=== PATIENT | male | born 1985 | race Caucasian/White ===

== ENCOUNTER 2019-08-23 15:51 | Emergency (ER) | payer OTHER, SELFPAY ==
[2019-08-23 16:10] VITALS: BP 143/80; PULSE 73; RESP 20; TEMP 36.4; O2SAT 99
--- NOTE | 2019-08-23 16:17 | ED.GENADULT ---
HPI - General Adult General Chief complaint: Upper Respiratory Infection Stated complaint: Possible Sinus infection Time Seen by Provider: 08/23/19 16:17 Source: patient Mode of arrival: ambulatory Limitations: no limitations History of Present Illness HPI narrative: 34-year-old male patient presents to the [facility] with complaints of congestion for the past 2 months. Patient states he has had a lot of nasal congestion and pressure to the sinuses. Patient states that he has been using [id number] Afrin for his symptoms for the past 2 months. Patient states that the only thing he has been able to find to help with the nasal congestion. Denies any fevers, body aches or chills. Denies any ear pain. Denies any facial pain. Denies any cough, sore throat, chest pain, shortness of breath, abdominal pain, nausea, vomiting or diarrhea. Related Data Allergies Allergy/AdvReac Type Severity Reaction Status Date / Time No Known Allergies Allergy Verified 08/23/19 16:17 Review of Systems Review of Systems: Narrative: CONSTITUTIONAL: Denies fever, chills, or sweats. EYES: Denies visual changes, redness, or discharge. ENT: Denies rhinorrhea, positive nasal congestion, denies sore throat, or otalgia. CARDIOVASCULAR: Denies chest pain, palpitations, or edema. RESPIRATORY: Denies cough or dyspnea. GASTROINTESTINAL: Denies abdominal pain, nausea, vomiting, or diarrhea. GENITOURINARY: Denies dysuria or hematuria. SKIN: Denies rash or itching. MUSCULOSKELETAL: Denies back pain, joint pain, or myalgia. NEUROLOGIC: Denies headache, numbness, or weakness. PSYCHIATRIC: Denies anxiety or depression. PMFSH Family History Family History Other Family history of arthritis Family history of malignant neoplasm Hypertension Social History Social History Smoking status: Current every day smoker Alcohol intake: current Comments At the time of my signature I agree with nursing past medical history, surgical, social, and family history. There is no relevant family history pertinent to the presenting complaint. Exam Narrative: Exam Narrative: GENERAL: Well-appearing, well-nourished, and in no acute distress. HEAD: Normocephalic, atraumatic. EYES: PERRLA and EOMI. ENT: Nares with erythema and edema noted bilaterally, no rhinorrhea or epistaxis. Mucous membranes moist. Posterior pharynx with no erythema, tonsillar margin, exudates or lesions present. Bilateral TMs are clear with no erythema or foreign bodies in the canal. NECK: Supple. No lymphadenopathy CHEST: Clear to auscultation. No respiratory distress. HEART: Regular rate and rhythm. No murmur heard. Normal peripheral pulses. ABDOMEN: Soft, nontender, nondistended, normal active bowel sounds. EXTREMITIES: Normal range of motion. No edema. SKIN: Warm, dry, no rash. NEURO: No focal deficits. Alert and oriented x3. Course Vital Signs Vital signs: Vital Signs Temperature 36.4 C 08/23/19 16:10 Pulse Rate 73 08/23/19 16:10 Respiratory Rate 20 08/23/19 16:10 Blood Pressure 143/80 H 08/23/19 16:10 Pulse Oximetry 99 08/23/19 16:10 Temperature 36.4 C 08/23/19 16:10 Pulse Rate 73 08/23/19 16:10 Respiratory Rate 20 08/23/19 16:10 Blood Pressure 143/80 H 08/23/19 16:10 Pulse Oximetry 99 08/23/19 16:10 Vital signs reviewed Medical Decision Making Differential Diagnosis Differential Diagnosis: Differential diagnosis: Allergic rhinitis, chronic sinusitis, tonsillitis, acute sinusitis, infectious mononucleosis, seasonal influenza, pertussis, diphtheria, meningococcal disease, viral syndrome, viral bronchitis, RSV. Notify patient that his symptoms are probably worsening from the nasal spray that he has been using. Discussed with patient and showed him that on the bottle it notifies him not to take it more than 3 days due to the fact that it can ac
== END 2019-08-23 16:30 | disposition home or self-care (01) ==
PROVIDERS: Emergency Provider Nurse Practitioner Family
DX: J00 Acute nasopharyngitis [common cold] (principal); J01.90 Acute sinusitis, unspecified; J01.00 Acute maxillary sinusitis, unspecified; F17.200 Nicotine dependence, unspecified, uncomplicated
CPT/HCPCS: 99213; G0463

== ENCOUNTER 2019-09-29 12:11 | Emergency (ER) | payer OTHER, SELFPAY ==
[2019-09-29 12:18] VITALS: BP 136/82; PULSE 91; RESP 14; TEMP 36.4; O2SAT 99
--- NOTE | 2019-09-29 12:30 | ED.EYEPROB ---
HPI - Eye Problem General Chief complaint: Eye Problems Stated complaint: Redness/pain in right eye Time Seen by Provider: 09/29/19 12:30 Source: patient and family History of Present Illness HPI Narrative: Patient presents with a feeling of a foreign body in his right eye. Patient states he went to sleep on the couch last night woke up thinking he had a dog hair or something in his right eye. Patient has irrigated his eye at home but continues to have a irritated feeling to his right eye. No drainage, no pain, no vision problems. MD chief complaint: eye redness Onset description: sudden Location: right eye Eye Symptoms: redness and foreign body sensation Place: home Mechanism: none Related Data Allergies Allergy/AdvReac Type Severity Reaction Status Date / Time No Known Allergies Allergy Verified 09/29/19 12:25 Review of Systems Review of Systems: Narrative: CONSTITUTIONAL: Denies fever, chills, or sweats. EYES: Denies visual changes, redness, or discharge. ENT: Denies rhinorrhea, congestion, sore throat, or otalgia. Right eye redness CARDIOVASCULAR: Denies chest pain, palpitations, or edema. RESPIRATORY: Denies cough or dyspnea. GASTROINTESTINAL: Denies abdominal pain, nausea, vomiting, or diarrhea. GENITOURINARY: Denies dysuria or hematuria. SKIN: Denies rash or itching. MUSCULOSKELETAL: Denies back pain, joint pain, or myalgia. NEUROLOGIC: Denies headache, numbness, or weakness. PSYCHIATRIC: Denies anxiety or depression. [facility] Family History Family History Other Family history of arthritis Family history of malignant neoplasm Hypertension Social History Social History Smoking status: Current every day smoker Alcohol intake: current Comments At time of signature, agree with nursing past medical, surgical, social and family history. There is no relevant family history pertinent to the presenting complaint Exam Narrative: Exam Narrative: GENERAL: Well-appearing, well-nourished, and in no acute distress. HEAD: Normocephalic, atraumatic. EYES: PERRLA and EOMI. ENT: Nares clear, no rhinorrhea or epistaxis. Mucous membranes moist. Method of inspection: Right eye, viewed with fluorescein, viewed with slit lamp, ALCAINE APPLIED, Pupil: Both eyes, 2 mm, equal, reactivity brisk to direct light, Conjunctiva: Right, not with conjunctivitis, not pale, not with subconjunctival hemorrhage, Cornea: Right, no abrasions, Sclera: Right, clear, Intraocular pressure: Right, 16 mm Hg, Red reflex: Bilaterally, present. NECK: Supple. CHEST: Clear to auscultation. No respiratory distress. HEART: Regular rate and rhythm. No murmur heard. Normal peripheral pulses. ABDOMEN: Soft, nontender, nondistended, normal active bowel sounds. EXTREMITIES: Normal range of motion. No edema. SKIN: Warm, dry, no rash. NEURO: No focal deficits. Alert and oriented x3. Maynor Coma Scale Eye Opening: Spontaneous 4 Hamilton Coma Scale Motor: Obeys Commands 6 Maynor Coma Scale Verbal: Oriented 5 Hamilton Coma Scale Total 15 Course Vital Signs Vital signs: Vital Signs Temperature 36.4 C 09/29/19 12:18 Pulse Rate 91 09/29/19 12:18 Respiratory Rate 14 09/29/19 12:18 Blood Pressure 136/82 09/29/19 12:18 Pulse Oximetry 99 09/29/19 12:18 Temperature 36.4 C 09/29/19 12:18 Pulse Rate 91 09/29/19 12:18 Respiratory Rate 14 09/29/19 12:18 Blood Pressure 136/82 09/29/19 12:18 Pulse Oximetry 99 09/29/19 12:18 Addressed elevated BP today. Today's blood pressure higher than recommended range. Discussed importance of follow -up with PCP and possible shelter effects/cardiovascular events related to HTN. Currently patient denies headache, dizziness, vision changes, CP or shortness of breath. MDM - Eye Problem Differential Diagnosis Differential diagnosis: Likely corneal abrasion, conjunctivitis, acute iritis and
== END 2019-09-29 12:37 | disposition home or self-care (01) ==
PROVIDERS: Emergency Provider Nurse Practitioner Family
DX: S05.01XA Injury of conjunctiva and corneal abrasion without foreign body, right eye, initial encounter (principal); X58.XXXA Exposure to other specified factors, initial encounter; F17.200 Nicotine dependence, unspecified, uncomplicated
CPT/HCPCS: 99213; A9270; G0463

== ENCOUNTER 2020-05-08 07:50 | Outpatient (CLI) | payer OTHER, SELFPAY ==
[2020-05-08 07:58] LABS: Hematocrit 46.7 % (40.0-54.0); Hemoglobin 15.8 g/dL (14.0-18.0); Mean Corpuscular HGB Conc 33.8 g/dL (32.0-36.0); Mean Corpuscular Hemoglobin 30.8 pg (27.0-31.0); Mean Platelet Volume 10.2 fl (8.7-11.0); Platelet Count Result 178 K/mm3 (150-420); Red Blood Count 5.13 M/mm3 (4.70-6.10); Red Cell Distribution Width 12.5 % (11.6-14.4); White Blood Count 5.1 K/mm3 (4.8-10.8)
[2020-05-08 10:03] LABS: Alanine Aminotransferase 41 U/L (16-63); Albumin Level 4.3 g/dL (3.4-5.0); Alkaline Phosphatase 80 U/L (46-116); Anion Gap 10 mmol/L (8-16); Aspartate Amino Transferase 13 U/L (15-37); Bilirubin,Total 0.5 mg/dL (0.00-1.00); Blood Urea Nitrogen 19 mg/dL (7-18); Calcium 9.1 mg/dL (8.5-10.1); Carbon Dioxide 28 mmol/L (21-32); Chloride 104 mmol/L (98-108); Cholesterol 172 mg/dL (0-200); Estimated Glomerular Filt Rate > 60; Glucose 84 mg/dL (70-99); HDL Direct 61 mg/dL (40-60); LDL Cholesterol Calculated 96 mg/dL (<130); Osmolality Calculated 295 mOsm/kg (285-295); Potassium 4.2 mmol/L (3.5-5.1); Sodium 142 mmol/L (136-145); Total Protein 7.3 g/dL (6.4-8.2); Triglycerides 74 mg/dL (0-150)
== END 2020-05-08 07:51 | disposition home or self-care (01) ==
LOC: CHSLAB 07:52
PROVIDERS: PCP Family Medicine; Visit Provider Family Medicine
DX: Z00.00 Encounter for general adult medical examination without abnormal findings (principal)
CPT/HCPCS: 36415; 80053; 80061; 85027

== ENCOUNTER 2020-09-28 15:33 | Outpatient (NON) | payer OTHER, SELFPAY | END 2020-09-28 15:34 | PROVIDERS: PCP Family Medicine; Visit Provider Family Medicine | DX: N41.0 Acute prostatitis (principal) | CPT/HCPCS: 87086; 87491; 87591 ==

== ENCOUNTER → 2022-01-14 16:38 | Outpatient (CLI) | payer OTHER, SELFPAY ==
--- NOTE | ~2022-01-14 | MR_ITS ---
EXAMINATION: MR shoulder RT wo con DATE: 01/14/2022 18:00 INDICATION: Right shoulder pain TECHNIQUE: Magnetic resonance imaging (MRI) of the right shoulder was performed without intravenous c ontrast. Sequences included axial PD-weighted FS FSE, coronal oblique PD-weighted FS FSE, coronal obl ique T2-weighted FS FSE, sagittal PD-weighted FS FSE, and sagittal T1-weighted SE. COMPARISON: 07/07/2014 FINDINGS: Coracoacromial arch: The acromion undersurface is curved in morphology (type II). The coracoacromial ligament is normal. M ild acromioclavicular osteoarthritis. Rotator cuff: 1 supraspinatus, infraspinatus and subscapularis tendinopathy without discrete tear. The teres minor tendon is normal. Normal rotator cuff muscle bulk and signal. Biceps tendon, glenoid labrum and glenohumeral cartilage: Long head of the biceps tendon is normal. There is a tear of the superior to posterior inferior gleno id labrum which begins at the 1:00 position anteriorly and extends posteriorly and inferiorly to the 7:00 position. Increase in size of a para labral cyst which arises at the 11:00 position of the boo l tear with 16 x 7 x 7 mm component extending medially into the spinal glenoid notch along side the s uprascapular nerve. No evident fatty atrophy or abnormal muscle signal of the infraspinatus to sugges t impingement and secondary neuropathy. Smaller 11 x 9 x 3 mm component extending along the periphery of the posterior superior labrum. Glenohumeral cartilage is normal. Fluid: Physiologic amount of fluid in the glenohumeral joint and biceps tendon sheath. No loose osteochondr al bodies. No abnormal fluid signal in the subacromial/subdeltoid bursa consistent to suggest bursiti s. Bones: Interval progression of inclusion of prominent cystic change at the posterior aspect of the humeral h ead with thin low signal intensity likely sclerotic margins which is nearly entirely filled in with T 1 hyperintense marrow fat. No fracture or pathologic marrow replacing process. IMPRESSION: 1. Mild supraspinatus, infraspinatus and subscapularis tendinopathy without discrete tear. 2. Further inferior extension of a large labral tear approximately 1:00 to the 7:00 position of the s uperior, posterior and inferior labrum. 3. Interval enlargement of paralabral cysts arising at the 11:00 position of the glenoid with one com ponent extending into the spinal glenoid notch but without evident denervation change to the infraspi natus muscle to suggest impingement of the suprascapular nerve. Reviewed, dictated and finalized at location A. IMPRESSION: 1. Mild supraspinatus, infraspinatus and subscapularis tendinopathy without dis crete tear. 2. Further inferior extension of a large labral tear approximately 1:00 to the 7:00 position of the superior, posterior and inferior labrum. 3. Interval enlargement of paralabral cysts arising at the 11:00 position of th e glenoid with one component extending into the spinal glenoid notch but withou t evident denervation change to the infraspinatus muscle to suggest impingement of the suprascapular nerve.
== END ==
PROVIDERS: PCP Orthopaedic Surgery; Visit Provider Orthopaedic Surgery
DX: M25.511 Pain in right shoulder (principal)
CPT/HCPCS: 73221

== ENCOUNTER 2022-03-25 00:37 | Day surgery (SDC) | payer OTHER, SELFPAY ==
[2022-03-19 15:17] VITALS: BMI 28.8
--- NOTE | 2022-03-19 15:24 | PC.NURSE ---
Report to the Outpatient Waiting Room, entrance under the green pavilion located off [facility], at time 1200 on date 03/25/22. OR Time: 1400. Time changes happen often and if your time is changed the preop area will call you the afternoon before. - You and your visitor will be asked to self-screen and do not enter if you have any COVID symptoms. - Only one visitor and NO children visitors are allowed at this time. - The patient visitor is requested to leave or wait in car when not with patient due to restrictions. - A mask is required within the hospital. Patients may have clear liquids (water, carbonated beverages, clear teas, apple juice) until 3 hours prior to surgery with a maximum of 20 ounces. - No food from midnight until time of surgery Take the following medications with a SIP of water the morning of surgery: N/A Medications to discontinue per physician: N/A Date to take last dose: N/A Please no make-up, nail kiswahili, hairspray, perfume, deodorant, or body powder the day of surgery. No jewelry (including any body piercings) or valuables the day of surgery, leave them at home. Please take a shower or bath the night before, or the morning of, surgery with an antibacterial soap. Wear comfortable, loose fitting clothing. - Jewelry must be removed prior to entering the operating room. Rings and piercings that are not removed may be cut off. - The hospital will not accept responsibility for valuables. - Please leave all valuables, including medications, at home the day of surgery. If you are going home after surgery, a licensed retail delivery driver must drive you home. - NO public transportation without another adult. - We recommend that an adult stay with you for 24 hours following discharge. - We also recommend that you do not drive, make important decision, drink alcoholic beverages, or take any drugs that were not prescribed by your health care provider for at least 24 hours after your discharge time. Follow any additional instructions given to you from your surgeon. If you or anyone in your household have experienced Covid symptoms in the past week, please notify your surgeon or the nurse liaison at the phone number below for possible testing. Telephone instructions given to PT - ALYSON YEAGER and asked if any additional questions and then verbalized understanding. Patient advised to call surgeon office or pre surgery nurse liaison [phone] if any additional questions.
[2022-03-25] VITALS (8 sets, daily range): BP systolic 101–134; BP diastolic 70–91; PULSE 65–99; RESP 14–20; TEMP 36–36.1; O2SAT 98–100
--- NOTE | 2022-03-25 07:25 | WPDHPUPDATE1 ---
History and Physical Update Update Date/Time: 03/25/22 07:25 History and Physical has been reviewed, including an updated exam of the patient. There are NO changes in the patient's condition. Risks, benefits, and alternatives have been discussed and questions answered. Patient agrees to proceed with procedure.
--- NOTE | 2022-03-25 12:17 | WPDANESEPPF ---
Anes - Initial Pre Proc Eval Procedure: Operation Date: 03/25/22 14:00 Proposed Procedures p Arthroscopic Labral Debridement Right Shoulder with Mini Open Biceps Tenodesis - Harshil Anna MD Date/Time: 03/25/22 12:17 Surgeon: Harshil Anna MD Pre Op Diagnosis: right shoulder slap tear Patient Data Age: 36 Gender: M Height: 1.75 m Weight: 88.45 kg Allergies Allergy/AdvReac Type Severity Reaction Status Date / Time No Known Allergies Allergy Verified 03/19/22 15:16 Home Medications Medication Instructions Recorded Confirmed Type No Home Medications 11/07/21 03/19/22 History Patient hx anesthesia problems: none Family hx anesthesia problems: none Results Review: All pre-operative results and documents have been reviewed as part of the pre-operative evaluation. [facility] Past Medical History Medical History (Updated 03/25/22 @ 12:18 by Dave Siu MD) GERD (gastroesophageal reflux disease) No active medical problems Surgical History Surgical History History of left knee surgery age 14 torn meniscus Family History Family History Father Esophageal cancer Sibling Ovarian cancer Social History Social History Smoking packs per day: 0.5 Smoking cigarettes per day: 10.0 Years smoked: 10 Smoking pack-years: 5.00 Smoking status: Former smoker Tobacco type: cigarettes Smoking end date: 06/29/13 Alcohol intake: current Drinks per week: 4 Alcohol use details: social Substance use: never Substance use type: does not use Living arrangements: with friend(s) Spiritual care concerns: No Anes - Eval Final PreProcedure Day of Procedure 03/25/22 12:17 Patient weight: overweight Heart: regular rate and rhythm Lungs: clear to auscultation and normal air movement Airway: Mallampati scale class II Neurological: alert and oriented Last oral intake: >/= 8 hours ASA classification: II Emergent: no Anesthetic plan: proceed Anesthesia type and monitoring: general ETT Results Review: All pre-operative results and documents have been reviewed as part of the pre-operative evaluation. Informed Consent: The patient's anesthetic plan and its attendant risks and benefits were discussed with the patient/family/POA. Questions were solicited and answers provided to the satisfaction of the patient/family/POA.
--- NOTE | 2022-03-25 12:19 | WPDANESPNB ---
Anes - Peripheral Nerve Block Date/Time: 03/25/22 12:19 I have discussed with the patient/family/POA the placement of a peripheral nerve block for post-operative pain management, including associated risks, benefits, complications, and side effects. Alternative methods of post-operative analgesia were detailed. Questions were solicited and answers provided to the satisfaction of the patient/family/POA. Time-Out: A pre-procedural Time-Out was completed immediately before starting the procedure and confirmed: Patient Identification, Site, Procedure, Patient Position and the Availability of Requisite Equipment. Clinical Indications: Acute post-operative pain management requested by the operative surgeon. Nerve Block Insertion Note Anes-nerve block: supraclavicular Patient position: supine Skin prep: chlorhexidine Needle: 22 gauge, stimulating, insulated echogenic needle. Needle length: 80 mm Technique: ultrasound (in plane) Injectate: bupivacaine 0.5% with epi 5 mcg/ml (20cc) Observations: tolerated well Complications: none
[2022-03-25] MEDS: ACETAMINOPHEN 500 MG TABLET 1000 MG PO (12:30)
[2022-03-25] MEDS: LACTATED RINGERS 1,000 ML 30 ML IV CONT ×2 (12:30→15:50)
[2022-03-25] MEDS: KETOROLAC 15 MG/ML VIAL (*BKC) IV PUSH (12:30)
[2022-03-25] MEDS: ceFAZolin 2 GM/D5W 50 ML 2 GM/50 ML BAG IVPB (13:48)
[2022-03-25] MEDS: BUPIVACAINE/EPINEPHRINE 0.25% 50 ML VIAL 30 ML INFILTRATE (14:35)
--- NOTE | 2022-03-25 15:51 | W.PM.PROC2 ---
Procedure Note - Detailed Date of Procedure 03/25/22 Pre-op Diagnosis right shoulder slap tear Post-op Diagnosis Same Procedure Performed 1. Mini-open biceps tenodesis. 2. Arthroscopic SLAP tear debridement. Surgeon Harshil Anna MD Director Of Teaching And Learning Melissa Nicole PA-C Anesthesia General Indications Persistent shoulder pain secondary to documented SLAP tear with periarticular ganglion cyst. Description of Procedure Preoperative antibiotics were given. The patient was brought to the operating room. Careful positioning in the beach chair was accomplished. The head neck were carefully positioned. A small bump was placed under the left shoulder. The shoulder was examined. The shoulder was prepped and draped in the usual sterile fashion. Standard posterior and anterior arthroscopic portals were established. The shoulder was inspected. The SLAP tear was clearly identified. The biceps anchor point was unstable. Tear appeared to be only partially through on the posterior tissue which was not clearly unstable. It was debrided with a shaver and then the radiofrequency probe. The backside of the superior posterior labrum the tissue was lightly debrided where the cyst was located. The remaining glenohumeral cartilage was normal. The capsule appeared normal. The rotator cuff was normal with only a very minimal frayed area of the articular supraspinatus. The subscapularis was normal. The biceps tendon was released. Attention was turned to the subacromial space. A modest bursectomy was performed to inspect the cuff and the subacromial space. There did not appear to be any significant evidence for impingement or tearing. Attention was thus turned to the mini open portion of the procedure. An axillary incision was created at the pectoralis major insertion. The interval between the pectoralis and the short head of the biceps was dissected. The long head was identified. A retractor was placed at the pectoralis. The biceps was resistant to retrieval. The arthroscope was reintroduced in the joint and the biceps was confirmed to be distal. The biceps was delivered into the wound, and resected 1 cm proximal to the planed tenodesis site at the inferior border of the pectoralis. A Krackow stitch was placed using #2 Orthocord suture at the musculotendinous junction. The 7.5 mm acorn reamer was used to ream a unicortical hole just proximal to the pectoralis. Two 2.5 mm holes were placed one centimeter distal, in a triangular pattern. The Orthocord sutures were shuttled through the holes. The tendon was docked anatomically and tied on bone. The wound was irrigated and closed with 2-0 Vicryl suture and 3-0 Monocryl suture, followed by running 4-0 Monocryl, and Steri-Strips. Estimated Blood Loss 20 Complications No immediate complications Condition Stable Disposition PACU [facility] Billing Surgery - Charge Forward: Surgery Billing
[2022-03-25] MEDS: fentaNYL CITRATE INJ (*CRX) 100 MCG/2 ML VIAL 25 MCG IV PUSH ×4 (16:11→16:20)
[2022-03-25] MEDS: oxyCODONE HCL (*CRX) 5 MG TAB IR PO (16:46)
== END 2022-03-25 17:50 | disposition home or self-care (01) ==
PROVIDERS: PCP Family Medicine; Visit Provider Orthopaedic Surgery
PROC: (CPT 29805; principal; 2022-03-25 14:00)
DX: S43.431A Superior glenoid labrum lesion of right shoulder, initial encounter (principal); M67.813 Other specified disorders of tendon, right shoulder; X58.XXXA Exposure to other specified factors, initial encounter; Z87.891 Personal history of nicotine dependence
CPT/HCPCS: 29822; 23430; A4565; A9270; J0690; J1100; J1170; J1885; J2250; J2370; J2405; J2704; J3010; J7120

== ENCOUNTER 2023-08-10 19:47 | Emergency (ER) | payer OTHER, SELFPAY ==
--- NOTE | ~2023-08-10 | CT_ITS ---
EXAMINATION: CT abdomen pelvis w con DATE: 08/10/2023 21:00 INDICATION: Right lower quadrant abdominal pain and nausea TECHNIQUE: Computed tomography (CT) of the abdomen and pelvis was performed with 100 mL Omnipaque-350 intravenous contrast. Automated exposure control and iterative reconstruction technique were employe d. The dose-length product was 727.11 mGy-cm. COMPARISON: None FINDINGS: Mild dependent atelectasis in the bilateral lower lobes. Heart size is normal. No pericardial or pleu ral effusion. Enlargement of the main pulmonary artery consistent with pulmonary arterial hypertensio n. Bilateral gynecomastia. Liver, gallbladder, spleen, pancreas, bilateral adrenal glands and left ki dney are normal. 5 mm low-attenuation cyst at the lower pole of the right kidney. Normal appendix. Th ere is fluid scattered throughout the small bowel and colon consistent with diarrhea. No associated a bnormal bowel wall thickening or obstruction. Bladder is normal. No free intraperitoneal gas or fluid . No pathologically enlarged abdominal or pelvic lymphadenopathy. There are few scattered small bone islands in the pelvis and proximal femurs. IMPRESSION: 1. Scattered fluid in the large and small bowel consistent with nonspecific diarrhea. Correlate clini [place] for gastroenteritis. 2. No other acute intra-abdominal/pelvic process. Specifically the appendix is normal. Reviewed, dictated and finalized at location A. TRY EVISCERATOR IMPRESSION: 1. Scattered fluid in the large and small bowel consistent with nonspecific france rrhea. Correlate clinically for gastroenteritis. 2. No other acute intra-abdominal/pelvic process. Specifically the appendix is normal.
[2023-08-10 19:51] VITALS: BP 139/98; PULSE 120; RESP 18; TEMP 37.3; O2SAT 96
--- NOTE | 2023-08-10 20:05 | ED.GENADULT ---
HPI - General Adult General Chief complaint: Nausea/Vomiting/Diarrhea Stated complaint: vomiting Time Seen by Provider: 08/10/23 20:04 History of Present Illness HPI narrative: Healthy 38yo man presents with vomiting for less than a day, right lower quadrant abdominal pain, aches all over. No fever. Related Data Allergies Allergy/AdvReac Type Severity Reaction Status Date / Time No Known Allergies Allergy Verified 07/21/22 08:38 Review of Systems Review of Systems: All systems reviewed & are unremarkable except as noted in HPI and below Constitutional: Constitutional: Reports chills, Reports fatigue and Denies fever(s) ENT: Denies dysphagia Cardiovascular: Cardiovascular: Denies chest pain Respiratory: Respiratory: Denies dyspnea Gastrointestinal: Gastrointestinal: Reports abdominal pain, Reports nausea and Reports vomiting PMFSH Past Medical History Medical History GERD (gastroesophageal reflux disease) No active medical problems Surgical History Surgical History History of arthroscopy of right shoulder (~03/25/22) Labral Debridement History of left knee surgery age 14 torn meniscus Family History Family History Father Esophageal cancer Sibling Ovarian cancer Social History Social History Smoking packs per day: 0.5 Smoking cigarettes per day: 10.0 Years smoked: 10 Smoking pack-years: 5.00 Smoking status: Former smoker Tobacco type: cigarettes Smoking end date: 06/29/13 Alcohol intake: current Drinks per week: 4 Alcohol use details: social Substance use: never Substance use type: does not use Lack of Transportation: No Lack of Food: Never True Current Housing: I Have Housing Concerned About Future Housing: No Difficulty Paying Gas/Electric Bills: No Difficulty Paying for Meds: No Currently Unemployed: No Education: High School Diploma/GED Difficulty w/ Childcare or Family Care: No Living arrangements: with friend(s) Gender identity (if verbalized by the patient): Male Sexual Orientation (if Verbalized by the Patient): Straight or Heterosexual Spiritual care concerns: No Exam Const: General: alert Nutritional Appearance: well nourished HENMT: Head: normal to inspection Mouth: Yes moist mucous membranes Eyes: Conjunctivae: conjunctivae normal Resp: Effort & Inspection: normal respiratory effort GI: Inspection: non-distended GI Palp: Yes Soft to palpation and Yes Tenderness to palpation present (GI) Other: RLQ mild tenderness Skin: General skin exam: normal color, no jaundice and no pallor Course Vital Signs Vital signs: Vital Signs Temperature 37.3 C 08/10/23 19:51 Pulse Rate 120 H 08/10/23 19:51 Respiratory Rate 18 08/10/23 19:51 Blood Pressure 139/98 H 08/10/23 19:51 Pulse Oximetry 96 08/10/23 19:51 Oxygen Delivery Room Air 08/10/23 19:51 Temperature 37.3 C 08/10/23 19:51 Pulse Rate 120 H 08/10/23 19:51 Respiratory Rate 18 08/10/23 19:51 Blood Pressure 139/98 H 08/10/23 19:51 Pulse Oximetry 96 08/10/23 19:51 Oxygen Delivery Room Air 08/10/23 19:51 Medical Decision Making MDM Narrative Medical decision making narrative: nonbilious vomiting with RLQ pain, brief duration DDx gastroenteritis, food poisoning, mesenteric adenitis, appendicitis Vital Signs Vital Signs: Vital Signs Temperature 37.3 C 08/10/23 19:51 Pulse Rate 120 H 08/10/23 19:51 Respiratory Rate 08/10/23 19:51 Blood Pressure 139/98 H 08/10/23 19:51 Pulse Oximetry 96 08/10/23 19:51 Oxygen Delivery Room Air 08/10/23 19:51 Temperature 37.3 C 08/10/23 19:51 Pulse Rate 120 H 08/10/23 19:51 Respiratory Rate 08/10/23 19:
[2023-08-10] MEDS: ONDANSETRON INJ 4 MG/2 ML VIAL IV PUSH (20:12)
[2023-08-10] MEDS: SODIUM CHLORIDE 0.9% IV 1,000 ML 999 ML IV CONT (20:12)
[2023-08-10] MEDS: diphenhydrAMINE HCl INJ 50 MG/ML VIAL 25 MG IV PUSH (20:12)
[2023-08-10 20:28] LABS: Basophils Absolute Auto 0.02 K/mm3 (0.00-0.10); Basophils Percent Auto 0.3 % (0.0-1.0); Eosinophils Absolute Auto 0.04 K/mm3 (0.02-0.50); Eosinophils Percent Auto 0.6 % (1.0-6.0); Hematocrit 45.5 % (40.0-54.0); Immature Granulocyte Absolute 0.02 K/mm3 (0.00-0.00); Immature Granulocyte Percent A 0.3 % (0.0-0.0); Immature Platelet Fraction Pct 2.6 % (1.0-7.0); Lymphocytes Absolute Auto 0.21 K/mm3 (1.10-4.50); Lymphocytes Percent Auto 3.3 % (18.0-42.0); Mean Corpuscular HGB Conc 35.2 g/dL (32.0-36.0); Mean Corpuscular Hemoglobin 30.8 pg (27.0-31.0); Mean Corpuscular Volume 87.5 fL (78.0-102.0); Mean Platelet Volume 9.8 fl (8.7-11.0); Monocytes Absolute Auto 0.27 K/mm3 (0.10-0.90); Monocytes Percent Auto 4.2 % (2.0-11.0); Neutrophils Absolute Auto 5.9 K/mm3 (1.7-7.2); Neutrophils Percent Auto 91.3 % (50.0-70.0); Platelet Count Result 141 K/mm3 (150-420); Red Cell Distribution Width 12.8 % (11.6-14.4); White Blood Count 6.4 K/mm3 (4.8-10.8)
[2023-08-10 20:39] LABS: Alanine Aminotransferase 53 U/L (16-63); Albumin Level 4.1 g/dL (3.4-5.0); Alkaline Phosphatase 78 U/L (46-116); Anion Gap 13 mmol/L (8-16); Aspartate Amino Transferase 18 U/L (15-37); Bilirubin,Total 0.9 mg/dL (0.00-1.00); Blood Urea Nitrogen 25 mg/dL (7-18); Calcium 8.6 mg/dL (8.5-10.1); Carbon Dioxide 27 mmol/L (21-32); Chloride 99 mmol/L (98-108); Estimated CRCL calculation 96 ml/min; Estimated Glomerular Filt Rate > 60; Glucose 139 mg/dL (70-99); Lipase 18 U/L (16-77); Osmolality Calculated 294 mOsm/kg (285-295); Sodium 139 mmol/L (136-145); Total Protein 7.5 g/dL (6.4-8.2)
[2023-08-10 20:50] LABS: SARS-CoV-2 RNA PCR Negative (Negative)
[2023-08-10 20:51] LABS: Influenza A QL RT-PCR Negative (Negative); Influenza B QL RT-PCR Negative (Negative); RSV RNA, RT-PCR Negative (Negative)
[2023-08-10 21:17] VITALS: BP 128/85; PULSE 87; RESP 18; TEMP 37; O2SAT 99
== END 2023-08-10 21:18 | disposition home or self-care (01) ==
PROVIDERS: Emergency Provider Emergency Medicine
DX: K52.9 Noninfective gastroenteritis and colitis, unspecified (principal); Z87.891 Personal history of nicotine dependence; Z20.822 Contact with and (suspected) exposure to COVID-19
CPT/HCPCS: 36415; 74177; 80053; 83690; 85025; 85055; 87637; 96361; 96374; 96375; 99284; J1200; J2405; J7030; Q9967